=== PATIENT | male | born 1980 | race Two or more races ===

== ENCOUNTER 2017-12-09 19:52 | Emergency (ER) | payer MEDICAID, OTHER ==
[~2017-12-09] VITALS: Ht 175.3 cm; Wt 81.6 kg
[2017-12-09 20:00] VITALS: BP 129/75
== END 2017-12-09 22:59 | disposition home or self-care (01) ==
LOC: ER 19:54
DX: M67.432 Ganglion, left wrist (principal); F17.200 Nicotine dependence, unspecified, uncomplicated
CPT/HCPCS: 73110; A4606; Z7610